=== PATIENT | female | born 1950 | race Caucasian/White ===

== ENCOUNTER → 2018-02-01 | Outpatient (CLI) | payer BC | LOC: MC.RAD 14:10 | DX: Z12.31 Encounter for screening mammogram for malignant neoplasm of breast (principal) ==

== ENCOUNTER → 2018-10-22 | Outpatient (CLI) | payer MEDICARE, BC | LOC: COL.PUL 13:08 | DX: R06.02 Shortness of breath (principal); Z87.891 Personal history of nicotine dependence ==

== ENCOUNTER → 2018-11-21 | Outpatient (CLI) | payer MEDICARE, BC | LOC: COL.PUL 09:47 | DX: R06.02 Shortness of breath (principal) ==

== ENCOUNTER → 2019-02-19 | Outpatient (CLI) | payer MEDICARE, BC | LOC: MC.RAD 09:37 | DX: Z12.31 Encounter for screening mammogram for malignant neoplasm of breast (principal) ==

== ENCOUNTER → 2019-03-13 | Outpatient (CLI) | payer MEDICARE, BC | LOC: COL.PUL 09:45 | DX: R06.02 Shortness of breath (principal); Z87.891 Personal history of nicotine dependence | CPT/HCPCS: J7674 ==

== ENCOUNTER 2021-05-04 13:00 | Outpatient (RCR) | payer MEDICARE, BC ==
[2021-04-25 13:11] VITALS: BP 162/69; PULSE 102; TEMP 98.7
[2021-04-25 13:50] VITALS: BP 162/69; PULSE 92; TEMP 98.7
[2021-04-27 12:45] VITALS: BP 163/65; PULSE 93; TEMP 98.5
[2021-04-29 13:30] VITALS: BP 172/79; PULSE 97; TEMP 98.6
[2021-05-02 12:59] VITALS: BP 202/69; PULSE 99; TEMP 98.6
[~2021-05-04] VITALS: Ht 160 cm; Wt 117.0 kg
[~2021-05-04 13:00] MED LIST: ACIDOPHILIS PO; COZAAR100 MG PO; CRANBERRY 100 M1 SGL PO; EPA FISH OIL1 SGL PO; IRON 27 MG PO; NORVASC 5MG5 MG/TAB PO; PEPCID 20MG TAB20 MG PO; PRAVACHOL10 MG PO; PREDNISONE10 MG PO; PROTONIX 40MG T40 MG PO; SINGULAIR 110 MG/TAB PO; TRELEGY ELLIPT1 EACH IH; VITAMIN C500 MG PO; WELLBUTRIN SR200 MG PO; ZYRTEC 10MG10 MG PO
[2021-05-04 13:22] VITALS: BP 162/74; PULSE 80; TEMP 98.5
== END 2021-05-04 14:09 | disposition still patient (30) ==
LOC: EUO 13:00
DX: D64.9 Anemia, unspecified (principal); Z79.899 Other long term (current) drug therapy
CPT/HCPCS: J1756

== ENCOUNTER 2021-06-16 10:48 | Outpatient (CLI) | payer MEDICARE, BC ==
[~2021-06-16] VITALS: Ht 160 cm; Wt 117.6 kg
[2021-06-16 11:29] VITALS: BP 143/67; PULSE 89; TEMP 98.7
--- NOTE | 2021-06-16 13:45 | NUR ---
Pt remained in dept for 2 hr observation period following initial xolair injections. C/o initially of some itching around left arm injection site. No rash, reddness or hives developed, and itching quickly resolved. No other complaints or symptoms of reaction noted. Pt is assisted out to her car by wheelchair.
== END 2021-06-16 13:45 | disposition home or self-care (01) ==
LOC: EUO 10:48
DX: J45.40 Moderate persistent asthma, uncomplicated (principal); Z79.899 Other long term (current) drug therapy
CPT/HCPCS: J2357

== ENCOUNTER 2021-06-30 13:09 | Outpatient (CLI) | payer MEDICARE, BC ==
[~2021-06-30] VITALS: Ht 160 cm; Wt 117.3 kg
[2021-06-30 14:30] VITALS: BP 138/77; PULSE 67; TEMP 98.1
== END 2021-06-30 14:35 ==
LOC: EUO 13:09
DX: J45.40 Moderate persistent asthma, uncomplicated (principal); Z79.899 Other long term (current) drug therapy
CPT/HCPCS: J2357

== ENCOUNTER 2021-07-14 13:31 | Outpatient (CLI) | payer MEDICARE, BC ==
[~2021-07-14] VITALS: Ht 160 cm; Wt 115.4 kg
[2021-07-14 14:00] VITALS: BP 147/75; PULSE 77; TEMP 98.2
== END 2021-07-14 15:29 | disposition home or self-care (01) ==
LOC: EUO 13:31
DX: J45.40 Moderate persistent asthma, uncomplicated (principal); Z79.899 Other long term (current) drug therapy
CPT/HCPCS: J2357

== ENCOUNTER 2021-07-28 13:44 | Outpatient (CLI) | payer MEDICARE, BC ==
[2021-07-28 15:09] VITALS: BP 156/63; PULSE 88; TEMP 97.9
== END 2021-07-28 14:40 | disposition home or self-care (01) ==
LOC: EUO 13:44
DX: J45.40 Moderate persistent asthma, uncomplicated (principal)
CPT/HCPCS: J2357

== ENCOUNTER 2021-08-11 11:01 | Outpatient (CLI) | payer MEDICARE, BC ==
[2021-08-11 12:07] VITALS: BP 169/56; PULSE 82; TEMP 98.2
== END 2021-08-11 13:42 ==
LOC: EUO 11:01
DX: J45.40 Moderate persistent asthma, uncomplicated (principal); Z79.899 Other long term (current) drug therapy
CPT/HCPCS: J2357

== ENCOUNTER 2021-08-25 13:23 | Outpatient (CLI) | payer MEDICARE, BC ==
[~2021-08-25] VITALS: Ht 160 cm; Wt 115.6 kg
[2021-08-25 13:57] VITALS: BP 138/71; PULSE 87; TEMP 98.6
[2021-08-25] MEDS ORDERED: IMDUR 30MG30 MG/TAB PO (14:04)
== END 2021-08-25 14:48 | disposition home or self-care (01) ==
LOC: EUO 13:23
DX: J45.40 Moderate persistent asthma, uncomplicated (principal)
CPT/HCPCS: J2357

== ENCOUNTER 2021-09-08 13:33 | Outpatient (CLI) | payer MEDICARE, BC ==
[~2021-09-08] VITALS: Ht 160 cm; Wt 115.8 kg
[~2021-09-08 13:33] MED LIST changes: +IMDUR 30MG30 MG/TAB PO
[2021-09-08 13:59] VITALS: BP 154/71; PULSE 100; TEMP 98.3
== END 2021-09-08 14:34 | disposition home or self-care (01) ==
LOC: EUO 13:33
DX: J45.40 Moderate persistent asthma, uncomplicated (principal); Z98.890 Other specified postprocedural states
CPT/HCPCS: J2357

== ENCOUNTER 2021-09-22 13:32 | Outpatient (CLI) | payer MEDICARE, BC ==
[~2021-09-22] VITALS: Ht 160 cm; Wt 116.2 kg
[2021-09-22 13:57] VITALS: BP 150/71; PULSE 97; TEMP 97.8
== END 2021-09-22 14:08 | disposition home or self-care (01) ==
LOC: EUO 13:32
DX: J45.40 Moderate persistent asthma, uncomplicated (principal)
CPT/HCPCS: J2357

== ENCOUNTER 2021-10-06 13:09 | Outpatient (CLI) | payer MEDICARE, BC ==
[~2021-10-06] VITALS: Ht 160 cm; Wt 114.6 kg
[2021-10-06 13:35] VITALS: BP 145/75; PULSE 94; TEMP 98.4
== END 2021-10-06 14:18 ==
LOC: EUO 13:09
DX: J45.40 Moderate persistent asthma, uncomplicated (principal); Z79.899 Other long term (current) drug therapy
CPT/HCPCS: J2357

== ENCOUNTER 2021-10-21 09:42 | Outpatient (CLI) | payer MEDICARE, BC ==
[~2021-10-21] VITALS: Ht 160 cm; Wt 114.0 kg
[2021-10-21 10:15] VITALS: BP 151/57; PULSE 93; TEMP 97.8
--- NOTE | 2021-10-21 10:23 | NUR ---
Pt reports in conversation after injection that she 'swithced Drs." Per pt report she no longes see Dr Omer Hogue but does still continue to see Dr Sandra Hogue as her primary physician.Message lft for Dr Hogue's nurse for further direction of patient's care.Apt was made for two weks away.Pt verbalizes understanding that I will need a local covering Dr.Pt reports her new Dr is Dr freed in [place].
--- NOTE | 2021-10-24 16:28 | NUR ---
Pt called today and reports her new dr doesnt want to continue xolair injections.next apt cancelled per pt request
== END 2021-10-21 10:18 ==
LOC: EUO 09:42
DX: J45.40 Moderate persistent asthma, uncomplicated (principal); Z79.899 Other long term (current) drug therapy
CPT/HCPCS: J2357

== ENCOUNTER → 2022-09-18 | Outpatient (CLI) | payer MEDICARE, BC ==
[~2022-09-18] MED LIST changes: +COLACE 100100 MG/CAP PO; +CRANBERRY250 MG PO; +FERRO-TIME325 MG PO; +LASIX 40MG TABL40 MG PO; +MELATONIN5 M1 PO; +PULMICORT0.5 MG/2 M IH
== END ==
LOC: DIET.TELE 12:20

== ENCOUNTER 2022-11-06 21:09 | Observation (INO) | payer MEDICARE, BC ==
[~2022-11-06] VITALS: Ht 160 cm; Wt 97.5 kg
[2022-11-06 21:34] LABS: BASO # 0.1 K/mm3 (0.0-0.2); BASO % 0.5 % (0.0-2.0); EOS # 0.2 K/mm3 (0.0-0.7); EOS % 1.3 % (0.0-4.0); GRAN # 12.7 K/mm3 (1.4-6.5); HEMOGLOBIN 11.6 g/dl (12.5-16.0); LYMPH # 0.7 K/mm3 (1.2-3.4); LYMPH % 4.7 % (20.0-51.0); MEAN CELL VOLUME 91 fl (80.0-100.0); MEAN CORPUSCULAR HEMOGLOBIN 31 pg (27-31); MEAN CORPUSCULAR HGB CONC 33 g/dl (33.0-37.0); MEAN PLATELET VOLUME 9.6 fl (7.4-10.4); MONO # 1.2 K/mm3 (0.1-0.6); MONO % 8.2 % (1.7-9.3); PLATELET COUNT 309 K/mm3 (130-400)
[2022-11-06 21:36] LABS: HEMATOCRIT 34.7 % (37.0-47.0)
[2022-11-06 21:51] LABS: ALANINE AMINOTRANSFERASE 26 U/L (0-55); ALBUMIN 3.7 gm/dL (3.4-4.8); ALKALINE PHOSPHATASE 102 U/L (40-150); ANION GAP 11 mmol/L (7-16); AST,SGOT 24 U/L (5-34); BILIRUBIN,TOTAL 0.4 mg/dL (0.2-1.2); BLOOD UREA NITROGEN 29 mg/dL (10-20); C-REACTIVE PROTEIN 7.87 mg/dL (0.00-0.50); CALCIUM 9.2 mg/dL (8.4-10.2); CARBON DIOXIDE 22 mmol/L (23-31); CHLORIDE 104 mmol/L (98-107); CREATININE, serum 1.32 mg/dL (0.57-1.11); GLUCOSE 106 mg/dL (70-99); POTASSIUM 4.2 mmol/L (3.5-4.5); SODIUM 137 mmol/L (136-145); TOTAL PROTEIN 6.7 gm/dL (6.2-8.1)
[2022-11-06 21:57] LABS: TROPONIN-I < 0.010 ng/mL (0.00-0.033)
[2022-11-06 23:26] VITALS: BP 121/51; PULSE 92; TEMP 98
--- NOTE | 2022-11-06 23:40 | NUR ---
PT ARRIVED FROM ER VIA STRETCHER. ABLE TO SCOOT SELF INTO MEDICAL BED. PT C/O PAIN TO R TOE WHEN TOUCHED/MOVES. OTHERWISE HAS NO OTHER COMPLAINTS. REQUESTS SOMETHING TO EAT. NOTED REDNESS AND SOME WARMTH/SWELLING TO R GREAT TOE. SKIN TO BLE VERY TIGHT, BUT NO PITTING EDEMA. PT STATES TIGHTNESS IS NORMAL, ONLY INCREASED SWELLING TO FEET AT THIS TIME. PT HAS CALL LIGHT IN HAND, ORIENTED TO ROOM AND CONTROLS. CARMELO ALEX IN TO SEE PT AT THIS TIME. WILL CONTINUE TO MONITOR.
[2022-11-07 04:45] VITALS: BP 137/45; PULSE 86; TEMP 98.1
[2022-11-07 07:17] LABS: HEMOGLOBIN 10.6 g/dl (12.5-16.0); MEAN CELL VOLUME 93 fl (80.0-100.0); MEAN CORPUSCULAR HEMOGLOBIN 30 pg (27-31); MEAN CORPUSCULAR HGB CONC 33 g/dl (33.0-37.0); MEAN PLATELET VOLUME 9.7 fl (7.4-10.4); PLATELET COUNT 270 K/mm3 (130-400); RED BLOOD COUNT 3.51 M/mm3 (4.10-5.30); REDCELL DISTRIBUTION WIDTH-CV 15.7 % (11.5-14.5)
[2022-11-07 07:23] LABS: CALCIUM 8.7 mg/dL (8.4-10.2); CREATININE, serum 1.32 mg/dL (0.57-1.11); MAGNESIUM 2.5 mg/dL (1.6-2.6); POTASSIUM 4.3 mmol/L (3.5-4.5)
[2022-11-07 07:26] LABS: HEMATOCRIT 32.6 % (37.0-47.0)
[2022-11-07 08:00] VITALS: BP 138/48; PULSE 82; TEMP 98.1
[2022-11-07 08:06] LABS: BAND 5 % (0-10); LYMPHOCYTE 2 % (20.0-51.0); NEUTROPHILS 91 % (42.0-75.2)
[2022-11-07 08:09] LABS: ANISOCYTOSIS 1+; OVALOCYTES 1+; PLATELET ESTIMATE NORMAL (NORMAL)
--- NOTE | 2022-11-07 08:32 | NUR ---
Pt Ox4, VSS, reports pain 2/10. Pt reports pain, edema and redness to RLE improved since admit. 2+ edema to BLE, warmth/pain to RLE. Reports tylenol is helping with pain. IV to LAC - SL. Continues on 2L O2 via NC, maintaining sats >95%. Lungs CTA. Pt states anticipating d/c today.
--- NOTE | 2022-11-07 09:33 | NUR ---
Initial visit; Patient thanked Rate Engineer for stopping and visiting about her health and offering God's blessings.
--- NOTE | 2022-11-07 10:31 | NUR ---
Bag Tester met with patient to discuss discharge planning. Patient lives alone in [place] and sees Dr. Sullivan for primary care. Patient uses either [facility] in program or [facility] for medications. Patient has home oxygen and a nebulizer through [facility]. Patient reports she is normally independent with ADLS and plans to return home at time of discharge. Patient worked with PT and recommendation is for home. Patient remarked that she has DME available at home from her late that she can use if needed like a bedside commode, rollator, etc. Patient provided that her DPOA-HC is her step-daughter, Claudia (ph#[phone]). SW contacted Claudia to review discharge plan. Claudia is in agreement with discharge home as long as patient does well with PT. Discharge Plan: Home
[2022-11-07 13:00] VITALS: BP 118/93; PULSE 89
[2022-11-07 16:00] VITALS: BP 117/45; PULSE 86; TEMP 98
[2022-11-07 19:49] VITALS: BP 145/55; PULSE 90; TEMP 97.8
--- NOTE | 2022-11-07 22:15 | NUR ---
Patient assessed at this time, head to toe assessment done, rates her pain at 2/10, denies the need for pain meds, INT to left AC, noted swelling both LE, denies further needs, wears oxygen at 2LPM via nasal prong, denies further needs, call light and personal items within reach, will continue to monitor.
[2022-11-07 23:25] VITALS: BP 148/46; PULSE 84; TEMP 97.7
[2022-11-08 04:46] VITALS: BP 130/47; PULSE 80; TEMP 98
--- NOTE | 2022-11-08 06:27 | NUR ---
Patient had an uneventful night, denies need at this time, will report off to dayshift nurse.
[2022-11-08 08:00] VITALS: BP 114/39; PULSE 80; TEMP 97.9
[2022-11-08] MEDS ORDERED: PREDNISONE20 MG PO (09:15)
[2022-11-08] MEDS ORDERED: COLCRYS0.6 MG PO (09:16)
[2022-11-08] MEDS ORDERED: ZOFRAN ODT4 MG PO (09:17)
--- NOTE | 2022-11-08 10:23 | NUR ---
PT REPORTING LEFT FOOT PAIN HAS RESOLVED. PLAN ON DISCHARGE THIS AM.
--- NOTE | 2022-11-08 10:42 | NUR ---
Follow-up visit; Patient very lively and talkative. She and Health Insurance Sales Agent joked back and forth and both said how much we enjoyed our 'fun' time together. Patient doing well with prescribed meds and may be discharged soon.
--- NOTE | 2022-11-08 13:47 | NUR ---
DISCHARGE INSTRUCTIONS REVIEWED WITH PATIENT. PT LEFT UNIT PER WHEEL CHAIR.
[2022-11-08] MEDS ORDERED: ZYLOPRIM 100MG100 MG PO (16:06)
== END 2022-11-08 13:12 | disposition home or self-care (01) ==
LOC: COL.ER 21:09 → SURG 22:45
PROVIDERS: Emergency Medicine; Student in an Organized Health Care Education/Training Program; ADMIT Internal Medicine
DX: M10.9 Gout, unspecified (principal); R60.9 Edema, unspecified; J45.909 Unspecified asthma, uncomplicated; E11.22 Type 2 diabetes mellitus with diabetic chronic kidney disease; I13.0 Hypertensive heart and chronic kidney disease with heart failure and stage 1 through stage 4 chronic kidney disease, or unspecified chronic kidney disease; I50.9 Heart failure, unspecified; N18.30 Chronic kidney disease, stage 3 unspecified; D63.1 Anemia in chronic kidney disease; E78.5 Hyperlipidemia, unspecified; F32.A Depression, unspecified; K21.9 Gastro-esophageal reflux disease without esophagitis; E66.9 Obesity, unspecified; G47.33 Obstructive sleep apnea (adult) (pediatric); K76.0 Fatty (change of) liver, not elsewhere classified; Z68.38 Body mass index [BMI] 38.0-38.9, adult; Z87.891 Personal history of nicotine dependence; Z79.899 Other long term (current) drug therapy
CPT/HCPCS: G0378; J0696; J1644; J1815; J2405; J2920; J2930; J7512

== ENCOUNTER → 2024-07-11 | Outpatient (CLI) | payer MEDICARE, BC ==
[~2024-07-11] MED LIST changes: +COLCRYS0.6 MG PO; +PREDNISONE20 MG PO; +ZOFRAN ODT4 MG PO; +ZYLOPRIM 100MG100 MG PO
== END ==
LOC: COL.RAD 09:56
DX: T17.908A Unspecified foreign body in respiratory tract, part unspecified causing other injury, initial encounter (principal)